=== PATIENT | male | born 1995 | race Hispanic/Latino ===

== ENCOUNTER 2016-05-31 00:27 | Emergency (ER) | payer OTHER ==
[~2016-05-31] VITALS: Ht 170.2 cm; Wt 70.5 kg
[2016-05-31 00:32] VITALS: BP 133/82; PULSE 85; RESP 18; O2SAT 100
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
[2016-05-31 01:46] VITALS: BP 121/73; PULSE 94; RESP 16; O2SAT 98
== END 2016-05-31 01:47 | disposition home or self-care (01) ==
LOC: SED 00:27
DX: S01.81XA Laceration without foreign body of other part of head, initial encounter (principal); Y04.8XXA Assault by other bodily force, initial encounter; Y92.9 Unspecified place or not applicable; Y93.89 Activity, other specified; Y99.8 Other external cause status